=== PATIENT | male | born 1995 | race Hispanic/Latino ===

== ENCOUNTER 2019-03-21 15:23 | Emergency (ER) | payer SELFPAY ==
[~2019-03-21] VITALS: Ht 165.1 cm; Wt 81.6 kg
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
--- OUTSIDE RECORDS SUMMARY | 2019-03-21 15:26 | XMS REPORT | Continuity of Care Document ---
Author Author [employer] Address Unknown Phone Unavailable Care Team Providers Care Maitre D' Name Role Phone [employer] Unavailable Unavailable Problems Problem Status Onset Date Classification Date Reported Comments Source Discharge Diagnosis: Rash 11/25/2016 11/28/2016 [place] [facility] Active 11/25/2016 [facility] Medications Medication Details Route Status Patient Instructions Ordering Provider Order Date Source Clotrimazole 10 MG/ML Topical Cream [Lotrimin] 1 appl, TOP, BID, X 14 day, # 45 gm, 1 Refill(s) Active 11/25/2016 [facility] Benadryl 50 mg, 2 tab, Route: PO, Drug form: TAB, ONCE, Dosing Weight 65.591, kg, Priority: STAT, Start date: 11/25/16 4:19:00 CDT, Stop date: 11/25/16 4:19:00 CDT Inactive 11/25/2016 [facility] Allergies, Adverse Reactions, Alerts No Known Medication Allergies Immunizations No Data Provided for This Section Results No Data Provided for This Section Pathology Reports No Data Provided for This Section Diagnostic Reports No Data Provided for This Section Consultation Notes No Data Provided for This Section Discharge Summaries No Data Provided for This Section History and Physicals No Data Provided for This Section Vital Signs Vital Sign Value Date Comments Source Systolic (mm Hg) 126 11/25/2016 [facility] Diastolic (mm Hg) 74 11/25/2016 [facility] Temperature Oral (F) 98.1 F 11/25/2016 [facility] Respitory Rate 18 11/25/2016 [facility] Systolic (mm Hg) 126 11/25/2016 [facility] Diastolic (mm Hg) 68 11/25/2016 [facility] Respitory Rate 18 11/25/2016 [facility] Respitory Rate 18 11/25/2016 [facility] Heart Rate 112 11/25/2016 [facility] Systolic (mm Hg) 118 11/25/2016 [facility] Diastolic (mm Hg) 74 11/25/2016 [facility] Weight 65.591 11/25/2016 [facility] BMI Calculated 25.62 11/25/2016 [facility] Height 160.02 cm 11/25/2016 [facility] Encounters Location Location Details Encounter Type Encounter Number Reason For Visit Attending Provider ADM Date DC Date Status Source [facility] Emergency [id number] Wil Weathers 11/25/2016 11/25/2016 [facility] Procedures No Data Provided for This Section Assessment and Plan No Data Provided for This Section Plan of Care No Data Provided for This Section Social History Social History Date Source Social History TypeResponse Smoking Status Current every day smoker; Type: Cigarettes; Ready to change: No; Concerns about tobacco use in household: No; Exposure to Tobacco Smoke None; Cigarette Smoking Last 365 Days Yes; Reg Smoking Cessation Counseling No 11/25/2016 [facility] Family History No Data Provided for This Section Advance Directives No Data Provided for This Section Functional Status No Data Provided for This Section
[2019-03-21] MEDS ORDERED: SODIUM CHLORIDE 0.9% 1000ML 1,000 ML IV SCH ×2 (16:00)
== END 2019-03-21 16:13 | disposition left against medical advice (07) ==
LOC: ER 15:23
DX: R42 Dizziness and giddiness (principal); R11.0 Nausea